=== PATIENT | female | born 1980 | race Caucasian/White ===

== ENCOUNTER 2024-06-20 15:16 | Emergency (ER) | payer OTHER ==
[~2024-06-20] VITALS: Ht 160 cm; Wt 77.3 kg
[2024-06-20 15:19] VITALS: BP 170/113; PULSE 102; RESP 18; TEMP 97.9
[2024-06-20] MEDS ORDERED: LOSA-382 PO (15:21)
[2024-06-20] MEDS: ACETAMINOPHEN 500 MG TABLET PO ONE (15:54)
[2024-06-20] MEDS: LORazepam 2 MG/ML VIAL IM ONE (15:54)
[2024-06-20] MEDS: ONDANSETRON HCL 4 MG/2 ML VIAL IM ONE (16:18)
== END 2024-06-20 16:34 | disposition home or self-care (01) ==
LOC: EMS 15:16
DX: F43.20 Adjustment disorder, unspecified (principal); F41.9 Anxiety disorder, unspecified; I10 Essential (primary) hypertension
CPT/HCPCS: 99284; 93005; 96372; J2060; J2405